=== PATIENT | male | born 1995 | race Caucasian/White ===

== ENCOUNTER 2019-02-13 20:30 | Emergency (ER) | payer OTHER ==
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
[2019-02-13] MEDS ORDERED: LOR5/325 PO (21:17)
[2019-02-13] MEDS ORDERED: CEPH500C24 PO (21:17)
[2019-02-13] MEDS ORDERED: ACET/HYDROC 5/325MG TH ER ONLY 2 TAB/BOTTLE PO ONE (21:20)
[2019-02-13] MEDS ORDERED: CEPHALEXIN MONO 500 MG CAP PO ONE (21:20)
[2019-02-13 21:30] VITALS: BP 156/81
--- NOTE | 2019-02-13 21:56 | RADIOLOGY IMAGING REPORT ---
FACILITY: [facility] PATIENT NAME: Damian Walker : 1995 MR: [id number] V: [id number] EXAM DATE: ORDERING PHYSICIAN: CESAR GABRIEL TECHNOLOGIST: Location: [facility] Patient: Damian Walker : 1995 Visit/Account:[id number] Date of Sevice: 02/13/2019 HAND COMPLETE RIGHT HISTORY: swelling injury 5 digit COMPARISON: None FINDINGS: AP lateral and oblique views of the right hand demonstrates no evidence of acute bony abnor mality. There is no evidence of lytic or blastic bony lesions. The visualized joint spaces are unrema rkable. There is soft tissue swelling of the right fifth digit. There is no evidence of gas or foreign body w ithin the visualized soft tissues. IMPRESSION: No evidence of acute osseous injury. Report Dictated By: Hector Looney at 02/13/2019 9:52 PM Report E-Signed By: Hector Looney at 02/13/2019 9:53 PM WSN:[id number]
== END 2019-02-13 21:33 | disposition home or self-care (01) ==
LOC: ER 20:45
DX: S63.657A Sprain of metacarpophalangeal joint of left little finger, initial encounter (principal); S61.209A Unspecified open wound of unspecified finger without damage to nail, initial encounter
CPT/HCPCS: 99283